=== PATIENT | female | born 1995 | race Caucasian/White ===

== ENCOUNTER 2021-03-26 14:23 | Emergency (ER) | payer OTHER ==
[~2021-03-26] VITALS: Ht 154.9 cm; Wt 89.8 kg
[2021-03-26 16:53] LABS: URINE BLOOD 3+ (Negative); URINE CLARITY TURBID; URINE COLOR DARK YELLOW; URINE GLUCOSE-RANDOM NEGATIVE (Negative); URINE KETONES NEGATIVE (Negative); URINE LEUKOCYTES-REFLEX NEGATIVE (Negative); URINE PROTEIN 1+ (Negative); URINE SPECIFIC GRAVITY 1.025 (1.005-1.030); URINE UROBILINOGEN 0.2 E.U./dl (0.2-1.0)
[2021-03-26 16:55] LABS: URINE BILIRUBIN 1+ (Negative); URINE NITRITE-REFLEX POSITIVE (Negative)
[2021-03-26 16:56] LABS: ICTOTEST (BILI CONFIRMATORY) Positive (Negative)
[2021-03-26 17:11] LABS: BACTERIA-REFLEX 1-9 Few /HPF (None Seen); CASTS None Seen /LPF (None Seen); SQUAMOUS 4-10 Moderate /LPF (0-3); URINE WBC-REFLEX 0-5 Rare /HPF (0-5)
[2021-03-26 17:12] LABS: AMORPHOUS URATES Many /LPF (None Seen)
[2021-03-26 17:17] LABS: ABSOLUTE BASOPHILS 0.1 thou/uL (0.0-0.2); ABSOLUTE LYMPHOCYTES 1.4 thou/uL (0.8-5.3); ABSOLUTE MONOCYTES 0.5 thou/uL (0.0-1.2); ABSOLUTE NEUTROPHILS 9.4 thou/uL (1.6-8.1); BASOPHILS 0.5 %; EOSINOPHILS 0.3 %; HEMATOCRIT 40.5 % (37.0-47.0); HEMOGLOBIN 13.6 gm/dL (12.0-15.0); LYMPHOCYTES 12.1 %; MCH 28.7 pg (26.0-34.0); MCHC 33.5 g/dL (28.0-37.0); MCV 85.7 fL (80.0-100.0); MPV 8.8 fl. (7.2-11.1); NUCLEATED RBCS 0 /100WBC; PLATELET COUNT* 268 thou/uL (150-400); POLYS 83.1 %; RBC 4.72 mil/uL (4.20-5.00); RDW-CV 13.2 % (10.5-14.5); WBC 11.3 thou/uL (4.0-11.0)
[2021-03-26 17:30] LABS: CALCIUM 9.3 mg/dL (8.5-10.1); CREATININE 0.7 mg/dL (0.6-1.3); POTASSIUM 4.4 mmol/L (3.5-5.1)
[2021-03-26 17:34] LABS: ALBUMIN 4.1 g/dL (3.4-5.0); TOTAL BILIRUBIN 0.5 mg/dL (<0.1-1.0); TOTAL PROTEIN 8.3 g/dL (6.4-8.2)
[2021-03-26] MEDS ORDERED: PERCOCET PO (18:24)
[2021-03-26] MEDS ORDERED: CIPRO500 M1 PO (18:24)
[2021-03-26] MEDS ORDERED: ZOFRAN ODT4 MG DISSOLVE (18:24)
[2021-03-26] MEDS ORDERED: FLOMAX0.4 MG PO (18:24)
[2021-03-26 18:42] VITALS: BP 125/70
== END 2021-03-26 18:43 | disposition home or self-care (01) ==
LOC: M.ERS 14:23
PROVIDERS: Nurse Practitioner Family
DX: N21.1 Calculus in urethra (principal); F41.9 Anxiety disorder, unspecified; F32.9 Major depressive disorder, single episode, unspecified; Z90.49 Acquired absence of other specified parts of digestive tract; Z90.89 Acquired absence of other organs